=== PATIENT | male | born 1995 | race Asian ===

== ENCOUNTER 2016-11-15 22:34 | Emergency (ER) | payer OTHER ==
[~2016-11-15] VITALS: Ht 175.3 cm; Wt 70.0 kg
[2016-11-15 22:38] VITALS: TEMP 36.8; Ht 175.3 cm; Wt 70.0 kg
[2016-11-15] MEDS ORDERED: HYDR-5688 PO (23:44)
[2016-11-15] MEDS ORDERED: NORCO 5/325MG HOME PACK PO ONE (23:45)
[2016-11-15 23:46] VITALS: BP 122/76; PULSE 82; O2SAT 98
--- NOTE | 2016-11-16 01:55 | EMERGENCY ROOM VISIT NOTE ---
ED Visit Note First contact with patient: 22:36 CHIEF COMPLAINT: Left ankle and foot pain. HISTORY OF PRESENT ILLNESS: Mr. Rodriguez is a 21-year old male who is brought via wheelchair into the ED left ankle and left foot pain. He reports approximately 2.5 hours ago he attempting to do a flying kicking in a martial arts class. Pediazole reports that when he landed his body continued to spin on his left leg. He reports at that time he had acute onset of left ankle and foot pain. Currently he describes his pain as a sharp and throbbing sensation. He places his discomfort over the inferior and posterior aspect of the lateral malleolus and over the third through fifth metatarsals. He rates his discomfort at/10. Pain is nonradiating. Pain worsens with ambulation, palpation, inversion and eversion of the ankle. He has not identified any alleviating factors related to the pain. He is not taking medications for pain prior to arrival at the hospital. Associated with his pain he does note a mild tingling sensation through the fourth and fifth toes. He denies any associated hip pain, knee pain, lower leg pain, leg/foot weakness. Previous significant injuries or surgeries to the left ankle or foot. REVIEW OF SYSTEMS: As noted above in History of Present Illness. PAST MEDICAL HISTORY: Asthma. CURRENT MEDICATIONS: Patient denies. ALLERGIES TO MEDICATIONS: Patient denies. 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 PHYSICAL EXAM: Vital Signs: Date Time Temp Pulse Resp B/P Pulse Ox O2 Delivery O2 Flow Rate FiO2 11/15/16 23:46 82 18 122/76 98 Room Air 11/15/16 22:38 36.8 118 18 146/100 96 Room Air General: 21 year old male in moderate distress due to pain, nontoxic-appearing, afebrile and hemodynamically stable. Neurological: Awake, alert, oriented to person place and time. Answering questions appropriately and following commands. Skin: Warm dry and pink. No soft tissue injuries. Left Lower Extremity: No gross beatris deformities. No tenderness in the hip or knee. Tenderness over the lateral malleolus and the ligamentous structures anterior and inferior to the malleolus with mild swelling but no bony deformity or crepitus. Moderate tenderness over the third through fifth metatarsals with no bony crepitus or deformity. There is a moderate swelling and early ecchymosis. I do not appreciate any laxity at the level of the ankle. Decreased range of motion in all toes except for the great toe due to pain and swelling. Throughout the foot the skin is pink and warm with brisk capillary refill. Able to distinguish light sensations through all dermatomes of the foot. ED COURSE: Patient is assessed as noted above. Left Ankle X-Rays: Were read by myself and reviewed with Dr. Kay; shows no acute fractures or dislocations of the ankle. Left Foot X-Rays: Were read by myself and reviewed with Dr. Kay; shows a comminuted fracture of the proximal fifth metatarsal and a mid shaft slightly displaced fracture of the fourth metatarsal with moderate swelling. No previous to compare. Radiologist review is pending. Patient is given ice for pain, swelling and comfort; patient was offered pain medications and refused. Patient is placed in a Ortho-Glass posterior ankle and stirrup splints and is instructed on crutch use. Patient's case was reviewed with Dr. Kay; we agreed on diagnostic, treatment, disposition and plan. Patient is educated about his condition and instructed on his treatment plan; he verbalizes understanding and agreement with the our plan. CLINICAL IMPRESSION: Left fourth and fifth metatarsal fractures. DISPOSITION: Patient is discharged to home in stable condition accompanied by female friends; prior to departure he was reassessed and subjectively reported he was feeling better and rated his discomfort 2/10. PLAN: Comfort measures were discussed with the patient. Patient should follow-up with an [facility] for definitive care and treatment. Patient was encouraged to return ED for worsening/uncontrolled pain, uncontrolled swelling, worsening tingling/numbness or any new/concerning symptoms.
--- NOTE | 2016-11-16 07:24 | DIAGNOSTIC IMAGING REPORT ---
LEFT ANKLE MIN 3 VIEWS ROUTINE, LEFT FOOT MIN 3 VIEWS ROUTINE CLINICAL HISTORY: Left ankle and left foot pain. COMPARISON STUDY: None. FINDINGS: Lateral soft tissue swelling within the ankle and foot. No acute fracture dislocation within the left ankle. The ankle mortise is well-maintained. The Lisfranc joint is intact. There is a displaced oblique fracture within the midshaft of the fourth metatarsal. This demonstrates up to 7 mm of lateral displacement. There is a comminuted and displaced fracture at the base of the fifth metatarsal which extends to the intertarsal location. Therefore, this is consistent with a Ramirez fracture. The fragments demonstrate up to 7 mm of displacement. IMPRESSION: 1. No acute fracture or dislocation within the left ankle. 2. Comminuted and displaced fracture at the base of the left fifth metatarsal consistent with a Ramirez fracture. 3. Displaced midshaft fracture at the left fourth metatarsal. Electronically signed by: Fareed Auguste M.D. 11/16/2016 7:21 AM Dictated Date/Time: 11/16/2016 7:18 AM
== END 2016-11-16 00:20 | disposition home or self-care (01) ==
LOC: C.EDB 22:35
DX: S92.342A Displaced fracture of fourth metatarsal bone, left foot, initial encounter for closed fracture (principal); S92.352A Displaced fracture of fifth metatarsal bone, left foot, initial encounter for closed fracture; X58.XXXA Exposure to other specified factors, initial encounter; Y93.75 Activity, martial arts; J45.909 Unspecified asthma, uncomplicated